=== PATIENT | male | born 1960 | race African-American/Black ===

== ENCOUNTER 2018-08-08 19:10 | Emergency (ER) | payer BC ==
[~2018-08-08] VITALS: Ht 175.3 cm; Wt 99.8 kg
[2018-08-08 19:50] LABS: Basophils # (auto) 0.1 uL; Eosinophils # (auto) 0.3 uL; Lymphocytes # (auto) 1.6 uL; Monocytes # (auto) 0.5 uL; Neutrophils # (auto) 5.2 uL; Platelet Count (auto) 213 10^3/uL (140-450); Red Blood Cells 6.38 10^6/uL (4.5-5.90)
[2018-08-08 19:52] LABS: Basophils % (auto) 0.8 % (0.0-2.0); Eosinophils % (auto) 4.5 % (0.0-7.0); Hemoglobin 18.3 g/dL (13.5-17.5); Mean Corpuscular Hemoglobin 28.6 pg (28.0-32.0); Mean Corpuscular Hgb Conc. 33.2 g/dL (32.0-36.0); Mean Corpuscular Volume 86.1 fL (80.0-100.0); Neutrophils % (auto) 67.7 % (37.0-80.0); Nucleated Red Blood Cells % 0.1 %; Red Cell Distribution Width 14.4 % (11.8-14.3); White Blood Cell 7.7 10^3/uL (4.4-10.8)
[2018-08-08 20:03] LABS: Albumin 3.9 g/dL (3.4-5.0); BUN/Creatinine Ratio 15.2; Potassium 3.8 mmol/L (3.5-5.1)
[2018-08-08 20:05] LABS: Bilirubin, Total 0.4 mg/dL (0.2-1.0)
[2018-08-08 20:18] LABS: Partial Thromboplastin Time 27.8 sec (23.64-32.05)
[2018-08-09 01:41] VITALS: BP 139/92
== END 2018-08-09 02:19 | disposition home or self-care (01) ==
LOC: ER 19:14
DX: H53.8 Other visual disturbances (principal); I10 Essential (primary) hypertension
CPT/HCPCS: 36415; 70450; 70480; 80053; 85025; 85610; 85730